=== PATIENT | female | born 1950 | race Caucasian/White ===

== ENCOUNTER → 2022-06-09 | Day surgery (SDC) | payer OTHER | END | disposition home or self-care (01) | LOC: FMAMMOTONE 10:10 | PROVIDERS: ATTEND Surgery | PROC: 0HBT3ZX Excision of Right Breast, Percutaneous Approach, Diagnostic (ICD-10-PCS; principal; 2022-06-09) | DX: Z53.8 Procedure and treatment not carried out for other reasons (principal); R92.1 Mammographic calcification found on diagnostic imaging of breast | CPT/HCPCS: 19081 ==